=== PATIENT | male | born 1940 | race Caucasian/White ===

== ENCOUNTER 2016-06-16 08:07 | Day surgery (SDC) | payer MEDICARE, OTHER ==
[~2016-06-16] VITALS: Ht 185.4 cm; Wt 99.0 kg
[~2016-06-16 08:07] MED LIST: AMLO5TAB2 PO; ASPI325T32 PO; ATRV10T PO; CALC-952 PO; CHOL500011 PO; HYDR25TA4 PO; KRIL500C PO; LISI-567 PO; RANI75TA21 PO
[2016-06-16] MEDS ORDERED: Sodium Chloride LOK Flush 10 mL Syringe IV PRN (08:10)
[2016-06-16] MEDS ORDERED: fentaNYL-PF 50 mCg/mL 2 mL Inj IVPUSH PRN (08:10)
[2016-06-16 08:40] VITALS: BP 136/77; PULSE 52; RESP 16; O2SAT 99
[2016-06-16] MEDS: 0.9% Sodium Chloride 1,000 ML IV PRN ×3 (08:53→10:06)
[2016-06-16 10:25] VITALS: BP 121/68; PULSE 53; RESP 14; O2SAT 98
--- NOTE | 2016-06-16 10:39 | ENDO ---
[address] [address] ENDOSCOPY PROCEDURE PATIENT: IVONNE HERNDON : 1940 MR#: [id number] ADMIT: 06/16/2016 JOB ID: [id number] DATE: 06/16/2016 PRIMARY PROVIDER: MARK Easley PROCEDURE: Flexible sigmoidoscopy. 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 EQUIPMENT: PCF H 180 AL. SEDATION: 1. 2 mg Versed. 2. 50 mcg fentanyl. COMPLICATIONS: None identified. BOWEL PREPARATION: Excellent. PROCEDURAL INFORMATION: After the risks and benefits were explained, written and verbal informed consent was obtained. The patient was brought into the endoscopy suite and placed into the left lateral decubitus position. Sedation was achieved as above. A digital rectal examination accomplished. [id number] internal external nonbleeding, nonthrombosed hemorrhoids were noted. The scope was introduced into the rectum and advanced under direct visualization to approximately 40 cm from the anal verge. The scope was slowly withdrawn to carefully examine the mucosa for any defects or lesions. Retroflexed views were avoided in the rectum. Multiple direct views were made through the dentate line for exclusion of pathology. The colon was decompressed. The scope removed from the patient who tolerated the procedure well. FINDINGS: The previously placed tattoo around 25 cm from the anal verge was easily identified. Multiple photographs were taken. There did not appear to be any residual polyp at this location after a careful thorough search of the surrounding mucosa. No other pathology was identified from 40 cm back down to rectum. ENDOSCOPIC DIAGNOSIS: No evidence of recurrent or residual polyp. RECOMMENDATIONS: Considering the initial colonoscopy where this polyp was identified was in May of 2015, I think it would be reasonable to proceed now with a repeat full colonoscopy in two years' time.
== END 2016-06-16 23:59 | disposition home or self-care (01) ==
LOC: END 08:07
PROVIDERS: ATTEND Internal Medicine Gastroenterology
DX: Z86.010 Personal history of colon polyps (principal); K64.4 Residual hemorrhoidal skin tags; I10 Essential (primary) hypertension; E78.5 Hyperlipidemia, unspecified; G47.33 Obstructive sleep apnea (adult) (pediatric); K21.9 Gastro-esophageal reflux disease without esophagitis; R73.03 Prediabetes; D64.9 Anemia, unspecified; Z87.891 Personal history of nicotine dependence; Z79.82 Long term (current) use of aspirin
CPT/HCPCS: 45330; G0500; J2250; J7030